=== PATIENT | male | born 1990 | race African-American/Black ===

== ENCOUNTER 2016-10-28 10:53 | Emergency (ER) | payer MEDICAID ==
[2015-03-18 14:43] VITALS: BMI 23.6
[~2016-10-28 10:53] MED LIST: HYDROCODON-ACE1 EAC7 PO; PREVPAC PA1 COMB.PKG PO
== END 2016-10-28 12:42 | disposition home or self-care (01) ==
LOC: D.ER 10:53
DX: L02.214 Cutaneous abscess of groin (principal)